=== PATIENT | female | born 1940 | race Caucasian/White ===

== ENCOUNTER 2023-09-29 21:09 | Emergency (ER) | payer MEDICARE, OTHER, SELFPAY ==
[2023-09-29 21:15] VITALS: BP 162/70
[2023-09-29 21:31] LABS: % Basophils 0.4 % (0-2); % Eosinophils 1.8 % (0-6); % Immature Granulocytes 0.2 % (0-0.5); % Lymphocytes 37.7 % (20.5-51.1); % Monocytes 7.2 % (1.7-9.3); % Neutrophils 52.7 % (42.2-75.2); Absolute Eosinophils 0.2 10^3/uL (0-0.7); Absolute Lymphocytes 3.2 10^3/uL (1.2-3.4); Absolute Monocytes 0.6 10^3/uL (0.1-0.6); Absolute Neutrophils 4.4 10^3/uL (1.4-6.5); Hematocrit 38.8 % (37.0-47.0); Mean Corp Hgb Conc. 33.5 g/dL (33.0-37.0); Mean Corpuscular Hgb 28.8 pg (27.0-31.0); Mean Corpuscular Volume 85.8 fL (81.0-99.0); Mean Platelet Volume 10.3 fL (7.4-10.4); Nucleated Red Blood Cells % 0 %; Platelet Count 181 10^3/uL (130-400); Red Blood Cell Count 4.52 10^6/uL (4.20-5.40); Red Cell Dist. Width 13.1 % (11.5-14.5); White Blood Cell Count 8.4 10^3/uL (4.8-10.8)
[2023-09-29 21:48] VITALS: BMI 35.2
[2023-09-29 22:00] VITALS: BP 144/62
[2023-09-29 22:05] LABS: Troponin I < 0.012 ng/ml
[2023-09-29 22:16] LABS: ALT (SGPT) 13 U/L (0-35); AST (SGOT) 24 U/L (14-36); Alkaline Phosphatase 76 U/L (38-126); Blood Urea Nitrogen 24 mg/dl (7-17); Calcium 10.7 mg/dl (8.4-10.2); Carbon Dioxide 28 mmol/L (22-30); Chloride 105 mmol/L (98-107); Estimated Creatinine Clearance 53 ml/min; Glucose 136 mg/dl (70-99); Lipase 203 U/L (23-300); Potassium 3.4 mmol/L (3.5-5.1); Sodium 139 mmol/L (135-145); Total Bilirubin 0.4 mg/dl (0.2-1.3); Total Protein 6.6 g/dl (6.3-8.2); eGFR > 60.00
--- NOTE | 2023-09-29 22:24 | ED.GENMED ---
History of Present Illness
General
Chief Complaint: Chest Pain
Source: patient and family
Exam Limitations: none
Time Seen by Provider: 09/29/23 22:16
Nursing documentation reviewed up to this point in time: agreed with
Travel History
Have you had any contact with someone who has COVID-19?: No
Do you have any symptoms of coronavirus? Fever > 100 degrees, chills, cough, shortness of breath, sore throat, loss of taste or smell, muscle aches, or headache?: No
History of Present Illness
History of Present Illness:
This a pleasant 83-year-old female who presents with midsternal chest pain that radiates up to her right shoulder. Patient states that she also felt some palpitations that began approximately 30 minutes prior to arrival. Patient states that she
was just at her cardiology appointment earlier in the day and was given 'a clean bill of health'. Patient states that she feels dizziness. Patient denies any current chest pain but does feel some palpitations. Patient frequently returns to her
home land of [facility]. She states that she has a trip planned for this Thursday. Patient reports no other complaints at this time.
Vital signs are stable. Patient not hypoxic
Nursing note reviewed. I agree with nursing documentation up to this point in time.
Home Meds and allergies reviewed.
NUMBER AND COMPLEXITY OF PROBLEMS ADDRESSED AT THE ENCOUNTER
� Chronic conditions affecting care: Hypertension, hyperlipidemia, previous DVTs
� Acute Exacerbation and/or Progression of Chronic Illness: Hypertension
� Differential Diagnosis includes: New onset atrial fibrillation, ACS
AMOUNT AND/OR COMPLEXITY OF DATA TO BE REVIEWED AND ANALYZED
I performed an independent evaluation of the following and my interpretation is:
EKG:EKG shows atrial fibrillation with rapid ventricular response rate of 122 QTc is normal. when compared with previous EKG A-fib has replaced sinus rhythm.
CT:
X-rays:
Ultrasound:IMPRESSION: No findings to confirm deep venous thrombosis of the right lower extremity.
Laboratory Studies: First troponin negative
Other: Adam Vasc Score of 6
Review of other/old records:
Clinical information was obtained by an independent historian:
Prescriptions/Medications Considered but not given:
Further testing considered but not performed:
RISK OF COMPLICATIONS AND/OR MORBIDITY OR MORTALITY OF PATIENT MANAGEMENT
Social determinants of health affecting care: Good Social Support family accompanied patient to the bedside
Discussion with other providers: Spoke with Dr. Tatum who agrees with plan to start Xarelto and Cardizem daily. Follow-up with Dr. Wiseman
Escalation of care including admission/observation vs risk of discharge considered: Admission not indicated
CRITICAL CARE NOTE:
Total Time (exclusive of procedures):
Update:
Plan: Ultrasound leg. 23 mg of Cardizem IV based on weight. Cardizem CD 120, Xarelto discharge for follow-up
Past History
Past History
ED Past Medical History: HTN and Other (DVT, PE)
Social History
Tobacco: Non-smoker
Alcohol: Occasional
Drug: None
Living: alone
Review of Systems
Review of Systems
Allergies reviewed?: Yes
All Other Systems: ROS reviewed and negative except as documented in HPI and ROS
Constitutional: Reports no symptoms
EENT: Reports no symptoms
Respiratory: Reports no symptoms
Cardiac: Reports chest pain
ABD/GI: Reports no symptoms
: Reports no symptoms
Musculoskeletal: Reports no symptoms
Skin: Reports no symptoms
Neurological: Reports dizzy
Endocrine: Reports no symptoms
Hematologic/Lymphatic: Reports no symptoms
Psychiatric: Reports no symptoms
Phy Exam
General Physical Exam
General Presentation: well appearing and no apparent distress
General Skin: warm and dry
General Habitus: normal
General Mental: alert
General Hydration: appears well hydrated
ENT Exam
ENT Exam: EOMI, pharynx normal, neck supple and normocephalic
Eye Exam
Eye Exam: PERRL, cornea clear and conjunctiva normal
Cardiovascular Exam
Cardiovascular Exam: no edema, no murmur, normal peripheral pulses and irregularly irregular
Pulmonary Exam
Pulmonary Exam: lungs clear, no respiratory distress, no rales, no crackles, no rhonchi, no stridor, no wheezing and no cough
Gastrointestinal Exam
Gastrointestinal Exam: normal bowel sounds, non tender, soft, no organomegaly, no pulsatile mass and non distended
Neurological Exam
Neurological Exam: alert, oriented x3, no motor deficits and speech normal
Musculoskeletal Exam
Musculoskeletal Exam: full ROM and no edema
Skin Exam
Skin Exam: normal color, warm/dry, no rash and no petechia
Psychiatric Exam
Psychiatric Exam: normal mood/affect
Scores
[id number] Score for Afib Stroke Risk
Age in Years (65=0, 65-74=1, >/=75=2): > or = 75
Sex (Female=+1): Female
Congestive Heart Failure History (Yes=+1): No
Hypertension History (Yes=+1): Yes
Stroke/TIA/Thromboembolism History (Yes=+2): Yes
Vascular Disease History (Yes=+1): No
Diabetes Mellitus (Yes=+1): No
Score: 6
Anticoagulation Recommendations: Recommend anticoagulation (as validated in nonvalvular fib)
Heart Score for Chest Pain Patients
STEMI patient?: Not applicable
Course
Orders/Labs/Results
Orders:
Orders
09/29/23 21:20
Electrocardiogram (*1) Urgent
Reason for Study: Chest Pain
EKG- Treatment ONCE
09/29/23 21:26
CMP [Comprehensive Metabolic Panel] Urgent
Complete Blood Count/With Diff Urgent
Lipase Urgent
Troponin I Urgent
09/29/23 22:24
Legs, Right US [US Periph Venous LOWER Ext RT] Urgent
Comment:
Reason For Exam: hx of dvt, r leg pain, new afib
09/29/23 22:25
Diltiazem HCl [Cardizem] 23 mg IV NOW STA
09/29/23 22:30
CR Chest - 2 Views Urgent
Comment:
Reason For Exam: chest pain
09/29/23 23:46
EKG [Electrocardiogram (*1)] Urgent
Reason for Study: Atrial Fibrillation
Diltiazem Extended Release [Cardizem Cd] 120 mg PO NOW STA
09/29/23 23:47
EKG- Treatment ONCE
09/29/23 23:53
Diltiazem Extended Release [Cardizem Cd] 120 mg PO NOW STA
09/29/23 23:54
Electrocardiogram (*1) Urgent
Reason for Study: Palpitations
09/30/23 00:45
Rivaroxaban [Xarelto] 20 mg PO NOW STA
Abnormal Lab Results
09/29/23
21:26
Potassium 3.4 L mmol/L
(3.5-5.1)
BUN 24 H mg/dl
(7-17)
Glucose 136 H mg/dl
(70-99)
Calcium 10.7 H mg/dl
(8.4-10.2)
09/29/23 21:26
09/29/23 21:26
Vital Signs
Initial and Last Documented VS:
Initial Vital Signs
Temp Pulse Resp BP Pulse Ox
97.4 F 82 24 162/70 93
09/29/23 21:15 09/29/23 21:15 09/29/23 21:15 09/29/23 21:15 09/29/23 21:15
Last Documented Vital Signs
Temp Pulse Resp BP Pulse Ox
97.4 F 61 20 144/59 97
09/29/23 21:15 09/30/23 01:54 09/30/23 01:54 09/30/23 01:54 09/30/23 01:54
*Critical Care Note
Total Time (30-74mins, 75-104mins- exclusive of procedures): Not Applicable
Update Note
Update Note:
09/29/2023 2353 PM:
ED Attending Note
-
Portions of this chart may have been created with voice recognition software.� Occasional wrong word or��sound alike� substitutions may have occurred due to the inherent limitations of voice recognition software.
Discharge Plan
Departure
Patient Disposition: Home (Routine Discharge)
Date of Disposition: 09/30/23
Time of Disposition: 01:53
Patient with high blood pressure during this ER visit?: Yes
Condition: Good
Discharge Problem:
Atrial fibrillation, new onset
Instructions: Atrial Fibrillation (DC), BLOOD PRESSURE
Prescriptions:
New
Xarelto 20 mg tablet
20 mg PO QPM Qty: 15 0RF
diltiazem HCl [Cardizem CD] 120 mg capsule,extended release 24hr
120 mg PO DAILY Qty: 30 0RF
No Action
aspirin 325 MG tablet,delayed release (DR/EC)
325 mg PO DAILY
glucosamine sulfate 2KCl 1,000 MG tablet
1,000 mg PO DAILY
ascorbic acid (vitamin C) [Vitamin C] 500 MG tablet
1,000 mg PO DAILY
lisinopril 20 MG tablet
20 mg PO BID
Activity Restrictions/Additional Instructions:
Please call Dr. Wiseman's office in the morning to discuss the new treatment plan.
It was a pleasure meeting you and taking part in your care. We hope for your continued healing and wellness.
Please read discharge instructions in their entirety. However, they are for general education and may not describe your exact diagnosis at discharge. Information on your ER visit and medical conditions were discussed with you along with appropriate
follow up information...
If indicated, please take your medications as instructed and indicated on discharge paperwork.
Please schedule a follow up appointment as directed. Call to schedule an appointment
Please return to the emergency department with ANY change in, persisting, or worsening of symptoms. If any of your symptoms do not improve, or persist, or become more severe within 6-12 hours, please return to the emergency department for further
care.
Please return to the emergency department if you develop a headache, neck pain/stiffness, fever greater than 100.4F, chest pain, shortness of breath, persistent nausea, vomiting, slurred speech, difficulty walking, numbness/tingling, weakness, signs
of infection or any other symptoms that are worrisome to you.
If you have any questions or concerns please do not hesitate to call the Hospital at or E-mail me directly at [email or web address]
Interventions
Interventions:
*Risk Screen - Suicide Last Done: 09/29/23 21:15
*General Assessment Last Done: 09/29/23 21:50
*Neglect/Abuse Screening Last Done: 09/29/23 21:15
ED- Fall Risk Assessment Last Done: 09/29/23 21:42
*ED COVID-19 Vaccine History Last Done: 09/29/23 21:50
*Nursing Disposition Last Done: 09/30/23 02:10
ED- Cardiac Assessment Last Done: 09/29/23 21:42
ED- Neurological Assessment Last Done: 09/29/23 21:42
ED Swallowing Screen Last Done: 09/30/23 00:40
Discharge Date and Time
Discharge Date/Time: 09/30/23 02:11
[2023-09-29] MEDS: CARDIZEM 23 MG IV (23:39)
[2023-09-29 23:40] VITALS: BP 146/76
[2023-09-30] VITALS: BP 127/52
[2023-09-30 00:49] VITALS: BP 131/51
[2023-09-30] MEDS: XARELTO 20 MG PO (00:50)
[2023-09-30] MEDS: CARDIZEM CD 120 MG PO (00:50)
[2023-09-30 01:54] VITALS: BP 144/59
== END 2023-09-30 02:11 | disposition home or self-care (01) ==
LOC: EMR 21:09
PROVIDERS: Emergency Medicine; EMERGENCY PHYSICIAN Student in an Organized Health Care Education/Training Program; FAMILY PHYSICIAN Family Medicine
DX: I48.91 Unspecified atrial fibrillation (principal); I10 Essential (primary) hypertension; E78.5 Hyperlipidemia, unspecified; M79.604 Pain in right leg
CPT/HCPCS: 71046; 80053; 83690; 84484; 85025; 93005; 93971; 96374; 99285

== ENCOUNTER → 2024-02-24 09:45 | Outpatient (REF) | payer MEDICARE, OTHER, SELFPAY | LOC: DHSLP 09:45 | PROVIDERS: ATTENDING PHYSICIAN Internal Medicine Critical Care Medicine; FAMILY PHYSICIAN Family Medicine | DX: G47.33 Obstructive sleep apnea (adult) (pediatric) (principal); R09.02 Hypoxemia; G47.00 Insomnia, unspecified; G47.52 REM sleep behavior disorder | CPT/HCPCS: 95810 ==

== ENCOUNTER → 2024-06-15 18:34 | Emergency (ER) | payer MEDICARE, OTHER, SELFPAY ==
[2024-06-15 18:45] VITALS: BP 182/100
[2024-06-15 19:13] LABS: % Basophils 0.5 % (0-2); % Eosinophils 2.1 % (0-6); % Immature Granulocytes 0.3 % (0-0.5); % Lymphocytes 31.8 % (20.5-51.1); % Monocytes 8.7 % (1.7-9.3); % Neutrophils 56.6 % (42.2-75.2); Absolute Eosinophils 0.2 10^3/uL (0-0.7); Absolute Lymphocytes 2.5 10^3/uL (1.2-3.4); Absolute Monocytes 0.7 10^3/uL (0.1-0.6); Absolute Neutrophils 4.4 10^3/uL (1.4-6.5); Hematocrit 42.2 % (37.0-47.0); Hemoglobin 13.4 g/dL (12.0-16.0); Mean Corp Hgb Conc. 31.8 g/dL (33.0-37.0); Mean Corpuscular Hgb 28.5 pg (27.0-31.0); Mean Corpuscular Volume 89.6 fL (81.0-99.0); Mean Platelet Volume 10.1 fL (7.4-10.4); Nucleated Red Blood Cells % 0 %; Platelet Count 209 10^3/uL (130-400); Red Blood Cell Count 4.71 10^6/uL (4.20-5.40); Red Cell Dist. Width 13.9 % (11.5-14.5); White Blood Cell Count 7.7 10^3/uL (4.8-10.8)
[2024-06-15 19:24] LABS: ALT (SGPT) 14 U/L (0-35); AST (SGOT) 21 U/L (14-36); Alkaline Phosphatase 70 U/L (38-126); Blood Urea Nitrogen 37 mg/dl (7-17); Calcium 10.3 mg/dl (8.4-10.2); Carbon Dioxide 29 mmol/L (22-30); Chloride 105 mmol/L (98-107); Glucose 106 mg/dl (70-99); Potassium 4.2 mmol/L (3.5-5.1); Sodium 143 mmol/L (135-145); Total Bilirubin 0.4 mg/dl (0.2-1.3); Total Protein 6.7 g/dl (6.3-8.2)
[2024-06-15 19:36] LABS: Troponin I < 0.012 ng/ml
--- NOTE | 2024-06-15 19:47 | ED.GENMED ---
History of Present Illness
General
Chief Complaint: Chest Pain
Source: patient
Exam Limitations: none
Time Seen by Provider: 06/15/24 19:40
Nursing documentation reviewed up to this point in time: agreed with
History of Present Illness
History of Present Illness:
83 yr old female with a past medical history of hypertension hyperlipidemia A-fib CHF presents to the ER for evaluation. For the past 1 week she has had intermittent episodes of chest pain that started in the center of her chest and radiate to the
right left. They last about 10 minutes at a time. She denies any history of shortness of breath with this but does feel short at times and this is not new for her. She is on Eliquis for A-fib but was off of Eliquis about a week and a half ago
for at least 5 days because of a dental procedure. She also does report that if she feels that she needs ibuprofen she will take the ibuprofen and not take the Eliquis in fact she did not take Eliquis this morning because she was taking ibuprofen.
She is currently asymptomatic.
Past History
Past History
ED Past Medical History: HTN and Other (DVT, PE)
Social History
Tobacco: Non-smoker
Alcohol: Occasional
Drug: None
Living: alone
Review of Systems
Review of Systems
Allergies reviewed?: Yes
All Other Systems: ROS reviewed and negative except as documented in HPI and ROS
Constitutional: Reports no symptoms; Denies fever, fatigue or chills
Respiratory: Reports other
Cardiac: Reports chest pain
ABD/GI: Reports no symptoms
: Reports no symptoms
Musculoskeletal: Reports other ( + l/e swelling )
Neurological: Reports no symptoms
Psychiatric: Reports no symptoms
Phy Exam
General Physical Exam
General Presentation: no apparent distress
General age: appears stated age
General Skin: warm and dry
General Habitus: normal
General Mental: alert
General Hydration: appears well hydrated
Cardiovascular Exam
Cardiovascular Exam: regular rate/rhythm, no murmur and normal peripheral pulses
Pulmonary Exam
Pulmonary Exam: lungs clear and no respiratory distress
Neurological Exam
Neurological Exam: alert and oriented x3
Musculoskeletal Exam
Musculoskeletal Exam: full ROM
Skin Exam
Skin Exam: normal color and warm/dry
Psychiatric Exam
Psychiatric Exam: normal mood/affect
Scores
Heart Score for Chest Pain Patients
STEMI patient?: Not applicable
Course
Orders/Labs/Results
Orders:
Orders
06/15/24 18:35
Electrocardiogram (*1) Urgent
Reason for Study: Chest Pain
06/15/24 18:36
EKG- Treatment ONCE
06/15/24 18:55
CMP [Comprehensive Metabolic Panel] Urgent
Complete Blood Count/With Diff Urgent
NT-proBNP Urgent
Comment: ADD ON
Troponin I Urgent
06/15/24 20:06
CT Chest Pe Study Urgent
Comment:
Reason For Exam: chest pain was off of her eliquis
06/15/24 20:11
Add On- LAB Urgent
Tests Added?: cardiac bnp
Abnormal Lab Results
06/15/24
18:55
MCHC 31.8 L g/dL
(33.0-37.0)
Absolute Monos (auto) 0.7 H 10^3/uL
(0.1-0.6)
BUN 37 H mg/dl
(7-17)
Glucose 106 H mg/dl
(70-99)
Calcium 10.3 H mg/dl
(8.4-10.2)
06/15/24 18:55
06/15/24 18:55
Vital Signs
Initial and Last Documented VS:
Initial Vital Signs
Temp Pulse Resp BP Pulse Ox
98.5 F 68 20 182/100 95
06/15/24 18:45 06/15/24 18:45 06/15/24 18:45 06/15/24 18:45 06/15/24 18:45
Last Documented Vital Signs
Temp Pulse Resp BP Pulse Ox
98.5 F 61 21 175/98 90
06/15/24 18:45 06/15/24 20:45 06/15/24 20:45 06/15/24 21:54 06/15/24 20:45
MDM/Problems Addressed
MDM/Problems Addressed:
Patient is 83-year-old female who presents to the ER for evaluation of intermittent chest pain as documented. Patient has been pain-free since being here in the ER no acute findings on EKG. Chest pain has been intermittent over the past week.
Patient has a negative cardiac troponin. She was however off of her Eliquis(she does have a history of DVT). She was off of her Eliquis for dental procedure. For this reason CAT scan was done which was negative for PE patient has been
asymptomatic here in the ER.
Patient is a patient of Dr. Wiseman. Will place on chest pain hotline patient is no acute distress stable for discharge home
*Radiology
Radiology exam reviewed: radiology read reviewed
*Pulse Oximetry
Patient hypoxic: no
*EKG
Interpreted by ED Provider?: Yes
Interpretation: normal
Heart Rate: 67
Rhythm: sinus
Ischemia: no ischemia
*Critical Care Note
Total Time (30-74mins, 75-104mins- exclusive of procedures): Not Applicable
ED Attending Note
-
Portions of this chart may have been created with voice recognition software.� Occasional wrong word or��sound alike� substitutions may have occurred due to the inherent limitations of voice recognition software.
Discharge Plan
Departure
Patient Disposition: Home (Routine Discharge)
Date of Disposition: 06/15/24
Time of Disposition: 22:21
Patient with high blood pressure during this ER visit?: Yes
Condition: Fair
Discharge Problem:
Chest pain
Instructions: Chest Pain DCA Follow Up
Prescriptions:
No Action
aspirin 325 MG tablet,delayed release (DR/EC)
325 mg PO DAILY
glucosamine sulfate 2KCl 1,000 MG tablet
1,000 mg PO DAILY
ascorbic acid (vitamin C) [Vitamin C] 500 MG tablet
1,000 mg PO DAILY
lisinopril 20 MG tablet
20 mg PO BID
Xarelto 20 mg tablet
20 mg PO QPM Qty: 15 0RF
diltiazem HCl [Cardizem CD] 120 mg capsule,extended release 24hr
120 mg PO DAILY Qty: 30 0RF
Referrals:
Minh Wiseman MD [Active] -
Martin Chand MD [Family Provider] -
Activity Restrictions/Additional Instructions:
Follow-up with shader and toner as discussed. You are placed on the chest pain hotline which means you should receive a call from the office in the next several days. If you do not please give the office a call to schedule appointment soon as
possible. Also please take your Eliquis as previously prescribed. Return if any worsening of symptoms.
Interventions
Interventions:
*Risk Screen - Suicide Last Done: 06/15/24 18:45
*General Assessment Last Done: 06/15/24 21:32
*Neglect/Abuse Screening Last Done: 06/15/24 18:45
*ED COVID-19 Vaccine History Last Done: 06/15/24 18:45
ED- Cardiac Assessment Last Done: 06/15/24 21:32
Discharge Date and Time
Print Language: MOLDOVAN
[2024-06-15 20:36] LABS: NT-proBNP 110 pg/ml
[2024-06-15 21:54] VITALS: BP 175/98
== END | disposition home or self-care (01) ==
LOC: EMR 18:34
PROVIDERS: Emergency Medicine; EMERGENCY PHYSICIAN Emergency Medicine; FAMILY PHYSICIAN Internal Medicine Geriatric Medicine
DX: R07.9 Chest pain, unspecified (principal); I48.91 Unspecified atrial fibrillation; I11.0 Hypertensive heart disease with heart failure; I50.9 Heart failure, unspecified; E78.5 Hyperlipidemia, unspecified; Z86.718 Personal history of other venous thrombosis and embolism; Z79.01 Long term (current) use of anticoagulants
CPT/HCPCS: 99284; 71275; 80053; 83880; 84484; 85025; 93005; Q9967

== ENCOUNTER → 2024-09-09 09:27 | Outpatient (REF) | payer MEDICARE, OTHER, SELFPAY | LOC: DHSLP 09:27 | PROVIDERS: ATTENDING PHYSICIAN Internal Medicine Critical Care Medicine; FAMILY PHYSICIAN Family Medicine | DX: G47.33 Obstructive sleep apnea (adult) (pediatric) (principal); R09.02 Hypoxemia | CPT/HCPCS: 95811 ==